=== PATIENT | male | born 1950 | race Caucasian/White ===

== ENCOUNTER → 2021-01-02 | Outpatient (CLI) | payer OTHER | LOC: CT 07:32 | PROVIDERS: ATTEND Family Medicine | DX: R51.9 Headache, unspecified (principal); H93.19 Tinnitus, unspecified ear; H81.4 Vertigo of central origin | CPT/HCPCS: 70450; 93880 ==

== ENCOUNTER → 2021-01-15 | Outpatient (CLI) | payer MEDICARE, OTHER ==
[~2021-01-15] MED LIST: GADOBENATE DIMEGLUMINE 1 ML IV ONE
== END ==
LOC: MRI 12:05
PROVIDERS: ATTEND Family Medicine
DX: R41.844 Frontal lobe and executive function deficit (principal)
CPT/HCPCS: 70553; A9577

== ENCOUNTER → 2022-01-23 | Day surgery (SDC) | payer MEDICARE ==
[2022-01-21 09:11] LABS: BASOPHILS % 0.3 % (0.0-1.0); EOSINOPHILS # (AUTO) 0.3 (0.0-0.4); EOSINOPHILS % 3.9 % (0.0-6.0); HEMOGLOBIN 14.5 g/dL (14.0-18.0); LYMPHOCYTES # (AUTO) 1.4 (1.0-3.2); MEAN CORPUSCULAR HEMOGLOBIN 28.7 pg (28-32); MONOCYTES # (AUTO) 0.5 (0.2-0.8); MONOCYTES % 6.7 % (4.4-11.3); NEUTROPHILS # (AUTO) 5.5 (2.1-6.9); NEUTROPHILS % 70.8 % (38.7-80.0); PLATELET COUNT 273 x10e3/uL (140-360); RED BLOOD COUNT 5.06 x10e6/uL (4.3-5.7); RED CELL DISTRIBUTION WIDTH 13.3 % (11.7-14.4)
[~2022-01-23] MED LIST changes: +ACETAMINOPHEN-1 EAC4 PO; +ACTOS15 MG PO; +AMLODIPINE BESY10 MG PO; +ATENOLOL50 MG PO; +CRESTOR10 MG PO; +FLOMAX0.4 MG PO; -GADOBENATE DIMEGLUMINE 1 ML IV ONE; +GLIPIZIDE5 MG PO; +HYOSCYAMINE SULFATE 0.5 MG/ML INJ ONE; +IBUPROFEN400 MG PO; +LEVOCETIRIZINE D5 MG PO; +LIDOCAINE HCL 2% LOCAL INJ 5 ML SDV VIAL INJ ONE; +MIDAZOLAM HCL 2 MG/2 ML VIAL ONE; +MONTELUKAST SOD10 MG PO; +OMEPRAZOLE40 MG PO; +PROPOFOL IV EMULSION 10 MG/ML 20 ML VIAL ONE; +TRICOR145 MG PO; +VITAMIN B12 PO; +VITAMIN B6 PO; +VITAMIN D PO; +ZESTRIL10 MG PO
[2022-01-23 09:45] VITALS: BP 134/81
== END | disposition home or self-care (01) ==
LOC: OR 05:40
PROVIDERS: ATTEND Internal Medicine Gastroenterology
DX: K22.2 Esophageal obstruction (principal); D12.2 Benign neoplasm of ascending colon; D12.3 Benign neoplasm of transverse colon; K62.1 Rectal polyp; K31.7 Polyp of stomach and duodenum; K29.70 Gastritis, unspecified, without bleeding; K20.90 Esophagitis, unspecified without bleeding; K57.30 Diverticulosis of large intestine without perforation or abscess without bleeding; R19.5 Other fecal abnormalities; K64.8 Other hemorrhoids; Z71.3 Dietary counseling and surveillance; E11.9 Type 2 diabetes mellitus without complications; I10 Essential (primary) hypertension; E78.00 Pure hypercholesterolemia, unspecified; Z01.810 Encounter for preprocedural cardiovascular examination; Z01.812 Encounter for preprocedural laboratory examination; Z20.822 Contact with and (suspected) exposure to COVID-19; Z79.84 Long term (current) use of oral hypoglycemic drugs; Z79.899 Other long term (current) drug therapy; Z68.30 Body mass index [BMI] 30.0-30.9, adult
CPT/HCPCS: 0223U; 36415 ×2; 43239; 43251; 43450; 45380; 45385; 82948; 85025; 93005; J1980; J2001; J2250; J2704; 45378

== ENCOUNTER → 2022-02-07 | Day surgery (SDC) | payer MEDICARE ==
[~2022-02-07] MED LIST changes: -HYOSCYAMINE SULFATE 0.5 MG/ML INJ ONE; -LIDOCAINE HCL 2% LOCAL INJ 5 ML SDV VIAL INJ ONE
[2022-02-07 15:25] VITALS: BP 170/90
== END | disposition home or self-care (01) ==
LOC: OR 11:36
PROVIDERS: ATTEND Internal Medicine Gastroenterology
DX: Z12.11 Encounter for screening for malignant neoplasm of colon (principal); Z85.038 Personal history of other malignant neoplasm of large intestine; D12.5 Benign neoplasm of sigmoid colon; K62.1 Rectal polyp; K64.8 Other hemorrhoids; K20.90 Esophagitis, unspecified without bleeding; K29.70 Gastritis, unspecified, without bleeding; K31.7 Polyp of stomach and duodenum; K57.90 Diverticulosis of intestine, part unspecified, without perforation or abscess without bleeding; E11.9 Type 2 diabetes mellitus without complications; I10 Essential (primary) hypertension; E78.00 Pure hypercholesterolemia, unspecified; Z79.84 Long term (current) use of oral hypoglycemic drugs; Z79.899 Other long term (current) drug therapy; Z68.30 Body mass index [BMI] 30.0-30.9, adult
CPT/HCPCS: 36415; 45335; 45338; 82948; J2250; J2704; 45330

== ENCOUNTER → 2022-03-13 | Outpatient (CLI) | payer MEDICARE ==
[~2022-03-13] MED LIST changes: +IOPAMIDOL 370 MG/ML 100 ML INFUS..BTL INJ ONE; -MIDAZOLAM HCL 2 MG/2 ML VIAL ONE; -PROPOFOL IV EMULSION 10 MG/ML 20 ML VIAL ONE; +SODIUM CHLORIDE 0.9% 500ML 500 ML ONE
[2022-03-13 08:00] LABS: CREATININE, SERUM 1.47 mg/dL (0.72-1.25)
== END ==
LOC: CT 07:03
PROVIDERS: ATTEND Internal Medicine Gastroenterology
DX: D12.5 Benign neoplasm of sigmoid colon (principal)
CPT/HCPCS: 36415; 74177; 82565; 84520; 96360; J7040; Q9967